=== PATIENT | female | born 1950 | race Two or more races ===

== ENCOUNTER → 2024-08-05 | Outpatient (CLI) | payer OTHER, SELFPAY ==
--- NOTE | 2024-08-05 | XR_ITS ---
Examination: Bilateral wrists 6 views TECHNIQUE: AP oblique lateral each wrist total 6 views Exam date and time: August 05, 2024 1213 hours INDICATIONS: Bilateral wrist pain 2 years FINDINGS: Severe osteopenia Moderate to advanced osteoarthritis right first carpometacarpal joint Moderate narrowing right navicular trapezium joint, mild to moderate narrowing radiocarpal joint Advanced narrowing left navicular trapezium joint Moderate to advanced osteoarthritis left first carpometacarpal joint Mild narrowing left radiocarpal joint No fractures IMPRESSION: Osteoarthritis as above
--- NOTE | 2024-08-05 | XR_ITS ---
Examination: Bilateral hands, 6 views. Technique: AP, Oblique, Lateral each hand total 6 views Date and time of exam: August 05, 2024 1208 hours INDICATIONS: Bilateral hand and wrist pain beginning 2 years ago. FINDINGS: Severe osteopenia Right hand significant osteoarthritis interphalangeal joint first digit, distal interphalangeal joints second third and fourth digits Left hand significant osteoarthritis interphalangeal joint first digit, distal interphalangeal joints second through fifth digits as well as proximal interphalangeal joint fifth digit Also significant arthritic change navicular trapezium joint left wrist No fractures Impression: Osteoarthritis as above
== END | disposition home or self-care (01) ==
PROVIDERS: PCP Family Medicine; Referring Provider Nurse Practitioner Gerontology; Visit Provider Nurse Practitioner Gerontology
DX: M19.032 Primary osteoarthritis, left wrist (principal); M19.031 Primary osteoarthritis, right wrist; M19.042 Primary osteoarthritis, left hand; M19.041 Primary osteoarthritis, right hand
CPT/HCPCS: 73110; 73130